=== PATIENT | male | born 1985 | race Hispanic/Latino ===

== ENCOUNTER 2021-04-01 10:55 | Emergency (ER) | payer OTHER ==
[~2021-04-01] VITALS: Ht 170.2 cm; Wt 104.3 kg
[2021-04-01] MEDS ORDERED: CASIRIVIMAB/IMDEVIMAB 10 ML in SODIUM CHLORIDE 0.9% 100 ML IV ONE (11:15)
[2021-04-01] MEDS ORDERED: SODIUM CHLORIDE 0.9% 100 ML ONE (11:19)
[2021-04-01 12:14] VITALS: BP 130/81
== END 2021-04-01 12:18 | disposition home or self-care (01) ==
LOC: ER 11:07
DX: U07.1 COVID-19 (principal); R05.9 Cough, unspecified
CPT/HCPCS: 99283; J7050